=== PATIENT | female | born 1975 | race Caucasian/White ===

== ENCOUNTER → 2017-07-25 | Outpatient (CLI) | payer OTHER ==
[~2017-07-25] MED LIST: CHOLESTYRAMINE P4 GM PO; CIPRO500 MG PO; CLINDAMYCIN HC300 MG PO; FLAGYL500 MG PO; PERCOCET 5/31 TABLET PO
== END | disposition home or self-care (01) ==
LOC: CDC 10:23
DX: Z79.899 Other long term (current) drug therapy (principal)
CPT/HCPCS: 93000